=== PATIENT | female | born 1990 | race African-American/Black ===

== ENCOUNTER 2025-03-15 21:03 | Observation (INO) ==
[2025-03-15 22:01] LABS: Basophils #(Absolute) Auto 0.1 (0.0-0.1); Basophils%(Percent) Auto 0.7 (0.1-0.85); Eosinophils#(Absolute)Auto 0.2 (0.0-0.2); Eosinophils%(Percent) Auto 1.6 % (0.4-2.8); Granulocytes % - Auto 62.2 % (47.8-71.3); Granulocytes#(Absolute)- Auto 6.9 (2.3-6.0); Hematocrit 32.8 % (35.9-46.7); Monocytes #(Absolute)- Auto 0.8 (1.1-3.1); Monocytes %(Percent)- Auto 6.7 % (3.6-9.8); Platelet Count 358 K/uL (152-353); White Blood Count 11.2 K/uL (4.3-9.3)
[2025-03-15 22:10] LABS: Potassium 3.7 mmol/L (3.6-5.2)
[2025-03-15 22:25] LABS: Urine Appearance CLEAR (CLEAR); Urine Color YELLOW (STRAW/YELL.)
[2025-03-15 22:26] LABS: Urine Blood NEGATIVE (NEG - TRACE); Urine Urobilinogen Normal (NORMAL)
[2025-03-15] MEDS ORDERED: diphenhydrAMINE HCL 50 MG/ML VIAL ONE (23:23)
[2025-03-15] MEDS ORDERED: METHYLPREDNISOLONE SOD SUCC/PF 125 MG/2 ML VIAL ONE (23:23)
[2025-03-15] MEDS: diphenhydrAMINE HCL 50 MG/ML VIAL INJ ONE (23:25)
[2025-03-15] MEDS: ACETAMINOPHEN 500 MG TABLET PO ONE (23:25)
[2025-03-15] MEDS: METHYLPREDNISOLONE SOD SUCC/PF 125 MG/2 ML VIAL IVP ONE (23:25)
[2025-03-16] MEDS: ENOXAPARIN SODIUM 120 MG/0.8 ML SYRINGE SUBQ ONE (04:29)
[2025-03-16] MEDS ORDERED: cloNIDine HCL 0.1 MG TABLET PO ONE (04:38)
[2025-03-16] MEDS: cloNIDine HCL 0.1 MG TABLET PO ONE (04:48)
[2025-03-16] MEDS ORDERED: MORPHINE SULFATE 2 MG/ML CARTRIDGE IV PRN (05:03)
[2025-03-16] MEDS ORDERED: ONDANSETRON HCL/PF 4 MG/2 ML VIAL INJ PRN (05:03)
[2025-03-16 07:42] LABS: Basophils #(Absolute) Auto 0.1 (0.0-0.1); Basophils%(Percent) Auto 0.7 (0.1-0.85); Granulocytes % - Auto 84.6 % (47.8-71.3); Granulocytes#(Absolute)- Auto 8.5 (2.3-6.0); Hematocrit 33.4 % (35.9-46.7); Mean Corpuscular Volume 77.9 fl (81.0-93.7); Monocytes #(Absolute)- Auto 0.1 (1.1-3.1); Monocytes %(Percent)- Auto 0.9 % (3.6-9.8); Platelet Count 373 K/uL (152-353)
[2025-03-16 07:49] LABS: Potassium 4.3 mmol/L (3.6-5.2)
[2025-03-16] MEDS: ENOXAPARIN SODIUM 30 MG/0.3 ML SYRINGE SUBQ SCH (09:17)
[2025-03-16] MEDS: METOPROLOL TARTRATE 25 MG TABLET PO SCH (09:17)
[2025-03-16] MEDS: ENOXAPARIN SODIUM 120 MG/0.8 ML SYRINGE SUBQ SCH (09:17)
--- NOTE | 2025-03-16 09:23 | History & Physical Report ---
H&P: HPI History of Present Illness Chief complaint: elevated d dimer Narrative: Ms. Lupe Bedolla is a 35 y/o female admitted for further evaluation and treatment after presenting to the ER with complaints of foot pain and swelling. Patient was evaluated in the ER with CBC, BMP, DDimer, UA, and CTA of chest. All labs unremarkable except for DDimer which was elevated at 977. CTA negative for PE. Patient reports that her only medical history is HTN for which she previously took Lisinopril. Patient reports she quit taking it due to angioedema and never followed up with her PCP Thomas Mcmahon NP for continued managment. Blood pressure was elevated upon arrival to ER and has continued to be elevated after receiving Clonidine in ER. Patient received sitting up on the side of the bed. She is alert and oriented X 4 and in no acute distress. She denies dyspnea or chest pain. She reports that she began having pain in her left knee approximately 5 days ago and it progressed to her left foot approximately 2 days ago with edema. She has a compression stocking in place to left lower extremity which was removed for assessment. Mild, nonpitting edema noted from knee extending into left foot. Tenderness noted to top of left foot upon palpation. No redness or warmth noted. Patient denies calf pain, recent injury, or infection. Review of Systems 2 Status of ROS 10 or more systems reviewed and unremark able except as noted in history and below Musculoskeletal Reports: extremity pain and extremity swelling PFSH PFSH Medical History (Updated 03/16/25 @ 09:45 by Tiburcio Talbot NP) HTN (hypertension) Surgical History (Updated 03/16/25 @ 09:37 by Tiburcio Talbot NP) H/O: Social History Smoking status: never smoker What is your current living situation: I presently have a place to live Problems where you live: no known problems In the past 12 months, utilities in danger of being shut off: no In past 12 months, lack of transportation kept you from medical appts, meetings, work, or getting things needed for daily living: No Highest level of school completed/degree received: high school Meds Home Medications and Allergies Home Medications Medication Instructions Recorded Confirmed Type No Known Home Medication 03/16/2503/16 History Allergies Allergy/AdvReac Type Severity Reaction Status Date / Time lisinopril Allergy Verified 03/15/25 21:18 fish Allergy Uncoded 03/15/25 21:18 Exam 2 Constitutional: normal general appearance, no apparent distress and average body habitus (Obese) Vital Signs - 24 hr 03/15/25 21:05 03/15/25 22:00 03/15/25 23:00 Temperature 98.4 F 98.0 F Pulse Rate 112 H 101 H 99 H Pulse Rate [Right Radial] Respiratory Rate 17 17 17 Blood Pressure 178/96 158/98 150/106 Blood Pressure [Le ft Arm] Pulse Oximetry 100 100 [facility] Room Air 03/16/25 00:00 03/16/25 01:01 03/16/25 02:00 Temperature 98.0 F 98.0 F Pulse Rate 104 H 97 H 98 H Pulse Rate [Right Radial] Respiratory Rate 16 16 17 Blood Pressure 177/109 164/105 168/101 Blood Pressure [Le ft Arm] Pulse Oximetry 100 100 100 [facility] Room Air Room Air 03/16/25 03:00 03/16/25 04:07 03/16/25 04:48 Temperature Pulse Rate 96 H 92 H Pulse Rate [Right Radial] Respiratory Rate 16 17 Blood Pressure 167/99 170/100 160/112 Blood Pressure [Le ft Arm] Pulse Oximetry 100 100 [facility] Air 03/16/25 04:52 03/16/25 05:03 03/16/25 05:06 Temperature 98.0 F 98 F Pulse Rate 92 H Pulse Rate [Right Radial] Respiratory Rate 17 19 19 Blood Pressure 160/112 Blood Pressure [Le ft Arm] 149/102 Pulse Oximetry 100 98 98 [facility] Room Air 03/16/25 05:06 03/16/25 05:20 03/16/25 08:00 Temperature 98 F 98 F 97.3 F L Pulse Rate Pulse Rate [Right Radial] 88 88 84 Respiratory Rate 18 19 19 Blood Pressure Blood Pressure [Le ft Arm] 149/102 140/100 Pulse Oximetry 98 98 95 [facility] Room Air HENMT: normocephalic, head/scalp atraumatic, hearing grossly normal bilaterally, external ears normal and EACs normal Eyes: PERRL, EOMs intact bilaterally, conjunctivae normal and no scleral icterus Neck/C-Spine: visual inspection normal and trachea midline Lymph: no lymphadenopathy noted and no lymphedema noted Chest: inspection of chest normal and palpation of chest normal Respiratory: breath sounds equal bilaterally, normal respiratory effort, clear to auscultation bilaterally, no wheezes, no rales, no retractions and no use of accessory muscles Cardiovascular: normal heart rate noted, regular rhythm noted and peripheral pulses 2+ throughout Gastrointestinal: abdomen normal to inspection, abdomen soft to palpation, nontender to palpation, nontender to percussion, nondistended and normoactive bowel sounds Genitourinary: no CVA tenderness Back/Pelvis: spine normal to inspection Extremities: full ROM and no deformity Mild, nonpitting edema noted from knee extending into left foot. Tenderness noted to top of left foot upon palpation. No redness or warmth noted. Neurology: industrial designer II-XII intact, no movement abnormality noted, no focal motor deficit noted, no sensory deficits noted, speech normal and coordination normal Psychiatry: Mental Status Exam documented within this Exam's Psych section oriented x3, thought process normal, cooperative, affect normal, psychomotor activity normal and memory normal Skin: skin color normal, no rash, no lesions, no ecchymosis noted, no wounds, no lacerations, skin turgor normal, no jaundice, no petechiae and nails normal Image: Body (4 view): 1. Mild, nonpitting edema noted from knee extending into left foot. Tenderness noted to top of left foot upon palpation. No redness or warmth noted. Assessment and Plan Assessment and Plan (1) HTN (hypertension): Assessment and Plan: 1. Start Metoprolol 12.5mg PO BID Code(s): I10 - Essential (primary) hypertension (2) Elevated d-dimer: Assessment and Plan: 1. Ultrasound Venous Duplex scheduled for 03/17/25 due to no availability today 2. Anticoagulate with LMWH per pharmacy dosing Code(s): R79.89 - Other specified abnormal findings of blood chemistry (3) Hyperglycemia: Assessment and Plan: 1. Check A1C-5.3 Code(s): R73.9 - Hyperglycemia, unspecified Results Labs Labs: CBC 03/15/25 03/16/25 Range/Units 21:35 07:37 WBC 11.2 H 10.0 H (4.3-9.3) K/uL RBC 4.2 4.3 (4.00-5.50) M/uL Hgb 10.3 L 10.8 L (12.5-15.8) gm/dL Hct 32.8 L 33.4 L (35.9-46.7) % Plt Count 358 H 373 H (152-353) K/uL Gran % 62.2 84.6 H (47.8-71.3) % Lymph % (Auto) 28.8 13.8 L (20.0-43.0) % [place] % (Auto) 6.7 0.9 L (3.6-9.8) % Eos % (Auto) 1.6 0.0 L (0.4-2.8) % Baso % (Auto) 0.7 0.7 (0.1-0.85) Lymph # (Auto) 3.2 H 1.4 (1.1-3.1) [place] # (Auto) 0.8 L 0.1 L (1.1-3.1) Eos # (Auto) 0.2 0.0 (0.0-0.2) Baso # (Auto) 0.1 0.1 (0.0-0.1) Absolute Gran (auto) 6.9 H 8.5 H (2.3-6.0) CMP 03/15/25 03/16/25 21:35 07:37 Sodium 143 140 Potassium 3.7 4.3 Chloride 105.0 105.0 Carbon Dioxide 29 26 BUN 9 11 Creatinine 0.8 0.7 Glucose 81 142 H Calcium 8.6 8.8 Urine 03/15/25 21:51 Urine Color Yellow Urine Appearance Clear Ur Specific [place] 1.030 Urine Protein 4+ Urine Glucose (UA) Normal Imaging Imaging ordered: CT scan - chest Radiologist's impression: FINDINGS: HEART AND PULMONARY ARTERIES: No evidence of right ventricular strain. No filling defects in the pulmonary arteries to suggest emboli. SUPPORT DEVICES: None LYMPH NODES: No pathologically enlarged nodes. LUNGS AND PLEURA: Normal AIRWAYS: Normal UPPER ABDOMEN: Hepatic steatosis BONES: Normal IMPRESSION: No acute intrathoracic abnormality identified. No evidence for pulmonary embolism.
[2025-03-17 06:09] LABS: Basophils #(Absolute) Auto 0.1 (0.0-0.1); Eosinophils#(Absolute)Auto 0.1 (0.0-0.2); Eosinophils%(Percent) Auto 0.5 % (0.4-2.8); Granulocytes % - Auto 62.7 % (47.8-71.3); Hematocrit 30.2 % (35.9-46.7); Mean Corpuscular Volume 78.4 fl (81.0-93.7); Monocytes #(Absolute)- Auto 0.7 (1.1-3.1); Monocytes %(Percent)- Auto 6.6 % (3.6-9.8); Platelet Count 328 K/uL (152-353); White Blood Count 11.2 K/uL (4.3-9.3)
[2025-03-17 06:38] LABS: Potassium 3.6 mmol/L (3.6-5.2)
[2025-03-17 08:28] VITALS: RESP 16; TEMP 97.5
[2025-03-17 13:22] VITALS: BP 161/98; PULSE 80
--- NOTE | 2025-03-17 14:41 | Discharge Summary ---
DS: Providers Provider Date of admission: 03/16/25 04:22 Primary care physician: Thomas Mcmahon DS: Diagnosis Discharge Diagnosis (1) Acute dehydration: (2) Anemia: Qualifiers: Anemia type: iron deficiency Iron deficiency anemia type: other iron deficiency Qualified Code(s): D50.8 - Other iron deficiency anemias (3) Thrombocytosis: (4) HTN (hypertension): Qualifiers: Hypertension type: primary hypertension Qualified Code(s): I10 - Essential (primary) hypertension (5) Elevated d-dimer: (6) Hyperglycemia: (7) Gout attack: Qualifiers: Gout site: multiple sites Gout etiology: idiopathic Qualified Code(s): M10.09 - Idiopathic gout, multiple sites (8) Morbid obesity with BMI of 50.0-59.9, adult: (9) Iron deficiency: DS: Summary Hospital Course Hospital Course: Patient was evaluated in the ER found to be in no acute distress breathsounds are clear and equal bilaterally.Patient does have pain and swelling to the left lower extremity starting at the knee that migrates downwards to the foot. Positive pulse motor sensory. Wells criteria for DVT this patient at moderate risk. Patient's D-dimer is elevated. CT angiogram of the chest for PE is negative for pulmonary embolism. Concern that patient may be experiencing a DVT due to symptoms and presentation. At this time ultrasound is not available however will be available 8 AM. Patient will be admitted to observation and will be started on Lovenox awaiting ultrasound in the morning. Patient agrees with this treatment plan. Time Spent with Patient Time attestation: Total time spent providing and/or coordinating discharge services: Exam Constitutional: Vital Signs - 24 hr 03/16/25 16:00 03/16/25 19:56 03/16/25 20:38 Temperature 97.5 F L 97.8 F Pulse Rate 85 Pulse Rate [Right Radial] 83 85 Respiratory Rate 19 18 Blood Pressure 151/86 Blood Pressure [Le ft Arm] 157/95 151/86 Pulse Oximetry 96 99 Oxygen Delivery Me thod Room Air Room Air 03/16/25 23:51 03/17/25 04:00 03/17/25 06:48 Temperature 97.7 F 97.8 F Pulse Rate Pulse Rate [Right Radial] 76 77 Respiratory Rate 18 18 Blood Pressure Blood Pressure [Le ft Arm] 129/83 166/110 144/84 Pulse Oximetry 98 98 Oxygen Delivery Me thod Room Air Room Air 03/17/25 08:00 03/17/25 09:35 03/17/25 12:00 Temperature 97.5 F L 97.5 F L Pulse Rate 83 Pulse Rate [Right Radial] 83 80 Respiratory Rate 16 16 Blood Pressure Blood Pressure [Le ft Arm] 150/96 161/98 Pulse Oximetry 97 96 Oxygen Delivery Me thod Room Air Room Air DS: Data Data Completed and Pending Labs on day of discharge: Labs from last 24 hours 03/17/25 05:45 WBC 11.2 H RBC 3.9 L Hgb 9.5 L Hct 30.2 L MCV 78.4 L MCH 24.6 L MCHC 31.4 L RDW 17.4 H Plt Count 328 MPV 8.0 Gran % 62.7 Lymph % (Auto) 29.2 [place] % (Auto) 6.6 Eos % (Auto) 0.5 Baso % (Auto) 1.0 H Lymph # (Auto) 3.3 H [place] # (Auto) 0.7 L Eos # (Auto) 0.1 Baso # (Auto) 0.1 Absolute Gran (auto) 7.0 H Sodium 139 Potassium 3.6 Chloride 104.0 Carbon Dioxide 27 Anion Gap 8.0 BUN 10 Creatinine 0.7 Estimated GFR 115.6 Glucose 93 Calcium 7.7 L Discharge Plan Discharge Disposition: Home, Self-Care Condition: Stable Discharge Medications: New metoprolol tartrate 25 mg tablet 12.5 mg PO BID Qty: 60 0RF losartan-hydrochlorothiazide 50-12.5 mg tablet 1 tab PO DAILY Qty: 30 0RF colchicine 0.6 mg tablet 0.6 mg PO DAILY Qty: 30 0RF Rx Instructions: 2 today then 1 po every day methylprednisolone [Medrol ([place])] 4 mg tablets,dose pack See Rx Instructions .ROUTE .COMPLEX Qty: 21 0RF Rx Instructions: for 6 days Discharge Orders: Discharge Order (Routine); Ordered 03/17/25 Ordered By: Daisy Gonzales Activity: increase activity as tolerated Diet: low fat, low cholesterol and low salt diet Activity Restrictions/Additional Instructions: Patient refused to continue to wait for ultrasound today of her leg states will follow-up with her PCP on Thursday and arrange at that time if pain is not improved with the treatment of the gout increase water intake BP and pulse Journal to go the patients PCP follow up next week Thomas Mcmahon follow up 04/05/2025 if she cannot get the appointment moved up to next week Gout diet discussed with the patient Forms: Portal/Health Info Access Inst Follow-Ups: Thomas Mcmahon [Primary Care Provider, Medical] - 04/05/25 10:00 am
--- NOTE | 2025-03-28 05:16 | Emergency Department Note ---
HPI - Extremity Injury (Lower) General Chief Complaint: Extremity Injury, Lower Stated Complaint: left foot swollen Time Seen by Provider: 03/15/25 21:06 Source: family Mode of arrival: walk-in Limitations: no limitations History of Present Illness HPI Narrative: 35-year-old female patient presents conscious alert and oriented x 4 to the ER complaining of pain to the left lower extremity. Patient states that the pain started behind her knee and seems to radiate down her leg to her foot. Patient has some swelling to her foot. Denies any chest pain or shortness of breath. Denies any known injury or trauma to cause pain. MD complaint: Reports leg injury Onset (ago): day(s) (3) Type of Injury: Reports unknown Place: Reports home Severity: mild-moderate Relieving factors: Reports nothing Exacerbating factors: Reports weight bearing, movement and palpation Other symptoms: Reports none Related Data Previous Rx's Medication Instructions Recorded colchicine 0.6 mg tablet 0.6 mg PO DAILY gout #30 tab s 03/17/25 losartan 50 mg-hydrochlorothiazide 1 tab PO DAILY htn #30 tabs 03/17/25 12.5 mg tablet methylprednisolone 4 mg tablets in See Rx Instructions PO .COMPLEX 03/17/25 a dose pack (Medrol ([place])) gout #21 ea metoprolol tartrate 25 mg tablet 12.5 mg (1/2 x 25 mg) PO BID 03/17/25 hypertension #60 tabs Allergies Allergy/AdvReac Type Severity Reaction Status Date / Time lisinopril Allergy Verified 03/15/25 21:18 fish Allergy Uncoded 03/15/25 21:18 Review of Systems Status of ROS 10 or more systems reviewed and unremark able except as noted in history and below Musculoskeletal Reports: extremity pain and extremity swelling PFSH [facility] Medical History (Updated 03/25/25 @ 00:00 by ) Anemia Morbid obesity with BMI of 50.0-59.9, adult HTN (hypertension) Surgical History (Updated 03/16/25 @ 09:37 by Tiburcio Talbot NP) H/O: Social History Smoking status: never smoker What is your current living situation: I presently have a place to live Problems where you live: no known problems In the past 12 months, utilities in danger of being shut off: no In past 12 months, lack of transportation kept you from medical appts, meetings, work, or getting things needed for daily living: No Highest level of school completed/degree received: high school Exam Constitutional: normal general appearance, no apparent distress and abnormal body habitus (overweight) Vital Signs - 24 hr 03/15/25 21:05 03/15/25 22:00 03/15/25 23:00 Temperature 98.4 F 98.0 F Pulse Rate 112 H 101 H 99 H Respiratory Rate 17 17 17 Blood Pressure 178/96 158/98 150/106 Pulse Oximetry 100 100 100 Oxygen Delivery Me thod Room Air Room Air Room Air 03/16/25 00:00 03/16/25 01:01 03/16/25 02:00 Temperature 98.0 F 98.0 F Pulse Rate 104 H 97 H 98 H Respiratory Rate 16 16 17 Blood Pressure 177/109 164/105 168/101 Pulse Oximetry 100 100 100 Oxygen Delivery Me thod Room Air Room Air Room Air 03/16/25 03:00 03/16/25 04:07 Temperature Pulse Rate 96 H 92 H Respiratory Rate 16 17 Blood Pressure 167/99 170/100 Pulse Oximetry 100 100 Oxygen Delivery Me thod Room Air Room Air HENMT: normocephalic Eyes: PERRL Lymph: no lymphadenopathy noted and no lymphedema noted Chest: inspection of chest normal Respiratory: breath sounds equal bilaterally, normal respiratory effort and clear to auscultation bilaterally Cardiovascular: normal heart rate noted and regular rhythm noted Extremities: abnormal to inspection (swelling to right foot) and tenderness noted tenderness to left lower extremity from the knee to the foot Neurology: manager information II-XII intact and no movement abnormality noted Psychiatry: mental status grossly normal and oriented x3 Skin: skin color normal Course Course Hospital Course: Patient was evaluated in the ER found to be in no acute distress breathsounds are clear and equal bilaterally.Patient does have pain and swelling to the left lower extremity starting at the knee that migrates downwards to the foot. Positive pulse motor sensory. Wells criteria for DVT this patient at moderate risk. Patient's D-dimer is elevated. CT angiogram of the chest for PE is negative for pulmonary embolism. Concern that patient may be experiencing a DVT due to symptoms and presentation. At this time ultrasound is not available however will be available 8 AM. Patient will be admitted to observation and will be started on Lovenox awaiting ultrasound in the morning. Patient agrees with this treatment plan. Vital Signs Vital signs: Vital Signs Temperature 98.4 F 03/15/25 21:05 Pulse Rate 112 H 03/15/25 21:05 Respiratory Rate 17 03/15/25 21:05 Blood Pressure 178/96 03/15/25 21:05 Pulse Oximetry 100 03/15/25 21:05 Oxygen Delivery Method Room Air 03/15/25 21:05 Temperature 98.0 F 03/16/25 02:00 Pulse Rate 92 H 03/16/25 04:07 Respiratory Rate 17 03/16/25 04:07 Blood Pressure 170/100 03/16/25 04:07 Pulse Oximetry 100 03/16/25 04:07 Oxygen Delivery Method Room Air 03/16/25 04:07 Discharge Plan Discharge Patient Disposition: Admitted As Observation Condition: Stable Clinical Impression: Elevated d-dimer Interventions: ED Discharge Assessment Last Done: 03/16/25 04:52 ED Discharge Vital Sign Last Done: 03/16/25 04:52 Emergency Department Charge Sheet Last Done: 03/15/25 23:55 Time of Disposition: 04:54 Discharge Date/Time: 03/16/25 04:54
== END 2025-03-17 15:07 | disposition home or self-care (01) ==
LOC: ED 21:03 → MS 21:03
PROVIDERS: ADMIT Nurse Practitioner Family; ATTEND Nurse Practitioner
DX: E66.01 Morbid (severe) obesity due to excess calories; R73.9 Hyperglycemia, unspecified; Z88.8 Allergy status to other drugs, medicaments and biological substances; D75.839 Thrombocytosis, unspecified; D50.8 Other iron deficiency anemias; Z68.43 Body mass index [BMI] 50.0-59.9, adult; Z91.013 Allergy to seafood; K76.0 Fatty (change of) liver, not elsewhere classified; Z79.899 Other long term (current) drug therapy; R79.1 Abnormal coagulation profile; M10.09 Idiopathic gout, multiple sites; I10 Essential (primary) hypertension; E86.0 Dehydration